=== PATIENT | male | born 2000 | race Caucasian/White ===

== ENCOUNTER 2023-03-21 07:13 | Outpatient (CLI) | payer OTHER ==
--- NOTE | 2023-03-21 09:04 | MRI Report ---
PROCEDURE: LUMBAR SPINE WO INDICATIONS: BACK PAIN TECHNIQUE: Noncontrast sagittal T1 spin echo and T2 fast echo, sagittal STIR, axial T1 and T2 fast spin echo thr ough the lumbar spine. In cases with scoliosis, additional coronal T2 fast spin echo may be performe d. COMPARISON: None. FINDINGS: Image quality: Excellent. Alignment and Curvature: There is normal bony alignment. Bone Marrow: Marrow is of normal overall signal. No acute vertebral body compression fractures. Spinal Cord: Conus medullaris terminates at the L1-L2 level. Incidental note is made of mild promine nce of the central canal of the cord in the lower thoracic region, centered at T12. Visualized cord d emonstrates normal signal and size. Paraspinous Soft Tissues: No paravertebral masses. T12-L1: Normal in appearance. L1-L2: Normal in appearance. L2-L3: Mild facet hypertrophy. No canal stenosis or foraminal stenosis. L3-L4: Mild facet hypertrophy. No canal stenosis or foraminal stenosis. L4-L5: Mild facet hypertrophy. Minimal disc bulge. No canal stenosis or foraminal stenosis. L5-S1: Mild facet hypertrophy. No canal stenosis or foraminal stenosis. IMPRESSION: Mild multilevel facet arthropathy. Otherwise unremarkable. No canal stenosis or foraminal stenosis. Reviewed by: Ponce Myers MD on 03/21/2023 9:03 AM PDT Approved by: Ponce Myers MD on 03/21/2023 9:03 AM PDT Station ID: [id number]
--- NOTE | 2023-03-21 09:08 | MRI Report ---
PROCEDURE: THORACIC SPINE WO INDICATIONS: BACK PAIN TECHNIQUE: Noncontrast sagittal T1 spine echo and T2 fast spin echo, sagittal STIR, axial T1 and T2 fast spin ec ho through the thoracic spine. COMPARISON: None. FINDINGS: Image quality: Excellent. Alignment and Curvature: There is normal bony alignment. Bone Marrow: Marrow is of normal overall signal. No acute vertebral body compression fractures. Spinal Cord: Visualized spinal cord is normal in size and signal. Incidental note is made of the pre sence of mild prominence of the central canal of the cord at the level of T12. Paraspinous Soft Tissues: No paravertebral masses. Miscellaneous: On axial images, central canal and foramina appear widely patent at all scanned level s. There is a minimal right paracentral disc bulge at T3-T4. There is no associated canal stenosis or fo raminal stenosis. IMPRESSION: Minimal right paracentral disc bulge at T3-T4. Otherwise unremarkable. No canal stenosis or foraminal stenosis. Reviewed by: Ponce Myers MD on 03/21/2023 9:07 AM PDT Approved by: Ponce Myers MD on 03/21/2023 9:07 AM PDT Station ID: [id number]
== END 2023-03-21 07:14 | disposition home or self-care (01) ==
LOC: DI 07:13
DX: M51.34 Other intervertebral disc degeneration, thoracic region (principal); M47.816 Spondylosis without myelopathy or radiculopathy, lumbar region